=== PATIENT | female | born 1975 | race African-American/Black ===

== ENCOUNTER 2019-04-05 09:53 | Emergency (ER) | payer SELFPAY ==
[~2019-04-05] VITALS: Ht 152.4 cm; Wt 54.4 kg
[2019-04-05 10:02] VITALS: Ht 152.4 cm; Wt 54.4 kg
[2019-04-05 11:28] LABS: BASOPHIL % 0.7 % (0-2); PLATELET COUNT 302 x10^3mcL (130-400)
[2019-04-05 11:31] LABS: RED CELL DISTRIBUTION WIDTH 15.1 % (11.5-14.5)
[2019-04-05 11:35] LABS: CALCIUM 9.2 mg/dL (8.5-10.1); CARBON DIOXIDE 24.3 mmol/L (21-32); CHLORIDE SERUM 102 mmol/L (98-107); CREATININE SERUM 0.6 mg/dL (0.6-1.0); GFR1 > 60 mL/min; GLUCOSE SERUM 101 mg/dL (74-106); POTASSIUM SERUM 4.3 mmol/L (3.5-5.1); SODIUM SERUM 144 mmol/L (136-145)
[2019-04-05 11:39] LABS: ALBUMIN 4.3 g/dL (3.4-5.0); ALKALINE PHOSPHATASE 59 U/L (46-116); ALT/SGPT 50 U/L (14-59); AST/SGOT 34 U/L (15-37); TRIGLYCERIDES 109 mg/dL (<150)
[2019-04-05 11:44] LABS: CHOLESTEROL 234 mg/dL (<200); CHOLESTEROL/HDL RATIO 2.7; HDL CHOLESTEROL 87 mg/dL (40-60); TOTAL PROTEIN, SERUM 8.3 g/dL (6.4-8.2)
[2019-04-05 11:51] LABS: BILIRUBIN TOTAL 0.1 mg/dL (0.20-1.00)
[2019-04-05 11:56] LABS: T3 TOTAL 0.96 ng/mL
[2019-04-05 12:38] LABS: FREE T4 0.83 ng/dL (0.76-1.46); FREE THYROXINE INDEX 2.4 ug/dL (1.4-4.5)
[2019-04-05 13:39] VITALS: BP 142/89
== END 2019-04-05 13:39 | disposition home or self-care (01) ==
LOC: EDBD 09:53 → ED 09:53
PROVIDERS: Specialist
DX: F41.9 Anxiety disorder, unspecified (principal); R07.89 Other chest pain; Z88.5 Allergy status to narcotic agent
CPT/HCPCS: 83880; 84439; 85378; J1885; J2060; J7030